=== PATIENT | male | born 1935 | race Two or more races ===

== ENCOUNTER 2018-11-04 18:47 | Inpatient (IN) | payer MEDICARE, MEDICAID ==
[~2018-11-04] VITALS: Ht 170.2 cm; Wt 74.4 kg
[2018-11-04] MEDS ORDERED: FLUT1DIS28 IH (19:02)
[2018-11-04] MEDS ORDERED: DONE10TA44 PO (19:02)
[2018-11-04] MEDS ORDERED: ALBU18HF2 IH (19:02)
[2018-11-04] MEDS ORDERED: ATOR20TA PO (19:02)
[2018-11-04] MEDS ORDERED: DOXY100C2 PO (19:02)
[2018-11-04] MEDS ORDERED: MAGN400O6 PO (19:02)
[2018-11-04] MEDS ORDERED: POLY17PO4 PO (19:02)
[2018-11-04] MEDS ORDERED: ACET-2154 PO (19:02)
[2018-11-04] MEDS ORDERED: TIMO5DRO18 EACHEYE (19:02)
[2018-11-04] MEDS ORDERED: BISA10SU61 RC (19:02)
[2018-11-04] MEDS ORDERED: CHOL20004 PO (19:02)
[2018-11-04] MEDS ORDERED: ALBU2.5V38 IH (19:02)
[2018-11-04] MEDS ORDERED: CHOL500050 PO (19:02)
[2018-11-04] MEDS ORDERED: NA P133E RC (19:02)
[2018-11-04] MEDS ORDERED: GLIM4TAB3 PO (19:02)
[2018-11-04] MEDS ORDERED: MULT1TAB73 PO (19:02)
[2018-11-04] MEDS ORDERED: LISI2.5T2 PO (19:02)
--- NOTE | 2018-11-04 19:10 | NUR ---
PATIENT WAS MSE BY CARMINA IN ROOM 04A.
[2018-11-04 19:30] LABS: BASOPHILS % (AUTO) 0.5 % (0.0-2.0); EOSINOPHILS # (AUTO) 0.2 K/uL (0.0-0.7); EOSINOPHILS % (AUTO) 2.6 % (0.0-7.0); HEMATOCRIT 42.6 % (36.7-47.1); HEMOGLOBIN 14.3 g/dL (12.5-16.3); LYMPHOCYTES # (AUTO) 1.4 K/uL (20.0-40.0); LYMPHOCYTES % (AUTO) 18.7 % (20.5-51.5); MEAN CORPUSCULAR HEMOGLOBIN 28.5 uug (23.8-33.4); MEAN CORPUSCULAR HGB CONC 34 g/dL (32.5-36.3); MEAN CORPUSCULAR VOLUME 84.7 fL (73.0-96.2); MONOCYTES # (AUTO) 0.6 K/uL (2.0-10.0); MONOCYTES % (AUTO) 8.3 % (0.0-11.0); NEUTROPHILS # (AUTO) 5.1 K/uL (1.8-8.9); NEUTROPHILS % (AUTO) 69.9 % (38.5-71.5); PLATELET COUNT (AUTO) 214 K/uL (152-348); RED BLOOD CELL COUNT(AUTO) 5.03 MIL/uL (4.06-5.63); WHITE BLOOD COUNT (AUTO) 7.4 K/uL (3.6-10.2)
[2018-11-04 19:34] LABS: CARBON DIOXIDE 27 mmol/L (21-32); CHLORIDE 103 mmol/L (98-107); CREATININE 1.6 mg/dL (0.6-1.3); GLUCOSE 78 mg/dL (74-106); POTASSIUM 4.5 mmol/L (3.5-5.1); UREA NITROGEN, BLOOD 27 mg/dL (7-18)
[2018-11-04 19:40] LABS: ACETAMINOPHEN < 2.0 ug/mL (10-30); ALANINE AMINOTRANSFERASE 20 U/L (16-63); ALKALINE PHOSPHATASE 103 U/L (50-136); ASPARTATE AMINOTRANSFERASE 20 U/L (15-37); BILIRUBIN,DIRECT 0.2 mg/dL (0.0-0.2); BILIRUBIN,TOTAL 0.7 mg/dL (0.2-1.0); ETHANOL < 3 MG/DL (0-0)
--- NOTE | 2018-11-04 19:44 | NUR ---
PATIENT MEDICALLY CLEARED. ALBINO WAS CALLED LEFT MESSAGE.
--- NOTE | 2018-11-04 21:00 | NUR ---
PATIENT WAS SEEN BY ALBNIO FROM CRISES TEAM AT BEDSIDE FOR EVAL.
--- NOTE | 2018-11-04 21:41 | NUR ---
Pt. admitted to MHU , under care of Dr. BRITTON Belongs List completed
[2018-11-04] MEDS ORDERED: ZOLPIDEM 5 MG TABLET PO PRN (22:15)
[2018-11-04] MEDS ORDERED: ACETAMINOPHEN 325 MG TABLET PO PRN (22:15)
[2018-11-04] MEDS ORDERED: MAG HYDROX/AL HYDROX/SIMETH 30 ML LIQUID UDC PO PRN (22:15)
[2018-11-04] MEDS ORDERED: MAGNESIUM HYDROXIDE 30 ML LIQUID UDC PO PRN (22:15)
--- NOTE | 2018-11-04 23:00 | NUR ---
Admission note: Received patient on a gurney from ED. Awake yelling " shut up Im trying to sleep". Attempted to oriented patient to the environment but unsuccessful. Unable to obtain information. Patient confused and disoriented. Patient put in the bed. Alarm set. Q15 min checks being done. Monitoring patient for safety at this time.
[2018-11-05 07:30] VITALS: BP 112/68
[2018-11-05] MEDS ORDERED: LORAZEPAM 2 MG/1 ML VIAL IM STA (13:05)
--- NOTE | 2018-11-05 13:15 | NUR ---
1300 Patient assisted for lunch meal, encouraging him to eat but patient became agitated, yelling " I want to "and combative trying to hit this staff . Dr. Petty in the U aware of patient uncontrolled behavior with order . 1305 Ativan 1 mg im administered. Will monitor behavior. Addendum: 11/05/18 at 1623 by [facility] TRINY GOODEN [id number] accu check 58 mg/dl -disregard error, wrong patient
[2018-11-05] MEDS ORDERED: ALBUTEROL SULFATE 2.5 MG/3 ML NEBU IH PRN (15:15)
[2018-11-05] MEDS ORDERED: DEXTROSE 50% 50 ML DISP.SYRIN IV PRN (15:15)
[2018-11-05] MEDS ORDERED: Medication Not On Formulary EA (Cholecalciferol (Vitamin D3) (Vitamin D3 CAPSULE) 50,000 PO SCH (15:15)
[2018-11-05] MEDS ORDERED: BISACODYL 10 MG SUPP.RECT RC PRN (15:15)
[2018-11-05 16:01] LABS: CARBON DIOXIDE 30 mmol/L (21-32); CHLORIDE 101 mmol/L (98-107); CREATININE 1.5 mg/dL (0.6-1.3); GLUCOSE 76 mg/dL (74-106); POTASSIUM 3.9 mmol/L (3.5-5.1); UREA NITROGEN, BLOOD 31 mg/dL (7-18)
[2018-11-05 16:23] VITALS: BP 105/57
[2018-11-05] MEDS: FLUTICASONE/VILANTEROL 1 EACH BLST.W.DEV INH SCH (16:26)
[2018-11-05] MEDS: TIMOLOL MALEATE 0.5% OPHT DROP 5 ML BOTTLE EACHEYE SCH (16:28)
[2018-11-05] MEDS: LISINOPRIL 5 MG TABLET PO SCH (16:29)
[2018-11-05] MEDS: ALBUTEROL SULFATE 2.5 MG/3 ML NEBU NEB SCH (16:55)
[2018-11-05] MEDS ORDERED: FLUTICASONE/SALMETEROL 250/50 INHALER IH SCH (17:00)
[2018-11-05] MEDS ORDERED: ALBUTEROL SULFATE 8 GM HFA.AER.AD IH SCH (17:00)
[2018-11-05] MEDS: BLOOD SUGAR DIAGNOSTIC 1 EACH STRIP VI SCH ×2 (17:08→20:38)
--- NOTE | 2018-11-05 17:30 | NUR ---
1630 BS accu check 66 mg /dl- dinner served, fed and ate 75 % og his meal.
[2018-11-05] MEDS: LORAZEPAM 1 MG TABLET PO PRN (19:37)
[2018-11-05] MEDS: QUETIAPINE FUMARATE 25 MG TABLET PO SCH (20:37)
[2018-11-05] MEDS: ATORVASTATIN 20 MG TABLET PO SCH (20:37)
[2018-11-05 20:54] VITALS: BP 105/64
--- NOTE | 2018-11-05 21:00 | NUR ---
PATIENT REFUSED SNACKS AND HE COULD ONLY HAD FEW SIPS OF JUICE. ACCU CHECKS QHS 96. PATIENT STATED, "I DON'T WANT TO EAT ANYTHING, I JUST WANT TO GO TO BED, PUT ME IN BED". PATIENT WAS THEN HELPED TO BED. WILL CONTINUE TO MONITOR.
[2018-11-06] MEDS: ALBUTEROL SULFATE 2.5 MG/3 ML NEBU NEB SCH ×4 (01:42→19:54)
[2018-11-06 07:30] VITALS: BP 108/56
[2018-11-06] MEDS: BLOOD SUGAR DIAGNOSTIC 1 EACH STRIP VI SCH ×4 (07:41→20:12)
[2018-11-06 07:51] LABS: CARBON DIOXIDE 28 mmol/L (21-32); CHLORIDE 104 mmol/L (98-107); CREATININE 1.5 mg/dL (0.6-1.3); GLUCOSE 86 mg/dL (74-106); POTASSIUM 4.1 mmol/L (3.5-5.1); UREA NITROGEN, BLOOD 28 mg/dL (7-18)
[2018-11-06] MEDS ORDERED: ESCITALOPRAM OXALATE 10 MG TABLET PO SCH (09:00)
[2018-11-06] MEDS ORDERED: Medication Not On Formulary EA (Cholecalciferol (Vitamin D3) (Vitamin D CAPSULE) 2,000 U PO SCH (09:00)
[2018-11-06] MEDS ORDERED: Medication Not On Formulary EA (Multivitamins (Multivitamin) 1 EACH) PO SCH (09:00)
[2018-11-06] MEDS: CHOLECALCIFEROL 1,000 UNIT TABLET PO SCH (09:00)
[2018-11-06] MEDS: LORAZEPAM 1 MG TABLET PO PRN ×2 (09:00→15:43)
[2018-11-06] MEDS: LISINOPRIL 5 MG TABLET PO SCH (09:00)
[2018-11-06] MEDS: DONEPEZIL 10 MG TABLET PO SCH (09:00)
[2018-11-06] MEDS: MULTIVITAMINS,THERAPEUTIC TABLET PO SCH (09:00)
[2018-11-06] MEDS: FLUTICASONE/VILANTEROL 1 EACH BLST.W.DEV INH SCH (09:01)
[2018-11-06] MEDS: TIMOLOL MALEATE 0.5% OPHT DROP 5 ML BOTTLE EACHEYE SCH ×2 (09:03→16:31)
[2018-11-06] MEDS: INSULIN REGULAR, HUMAN 300 UNIT/3 ML VIAL SQ PRN ×2 (11:42→16:51)
[2018-11-06] MEDS ORDERED: IV D5 1/2 NS 1000 ML 1,000 ML IV ONE (11:45)
[2018-11-06 16:00] VITALS: BP 95/53
[2018-11-06 19:52] VITALS: BP 109/58
--- NOTE | 2018-11-06 20:00 | NUR ---
RECEIVED PATIENT IN THE HALLWAY SITTING IN A PAUL CHAIR. HE IS NOTED A/O X 2. DEPRESSED MOOD FLAT AFFECT FLIGHT OF IDEAS, NEEDY. PATIENT IS RECEIVING IV FLUIDS DSW 45% NS. AT 100ML/HR. THERE IS APPROX 300ML LEFT IN BAG. PATIENT IS IN NO DISTRESS. V/S STABLE AT THIS TIME. ACCU CHECK 161. PATIENT IS REASSURED FOR HIS SAFETY. WILL CONTINUE TO MONITOR.
[2018-11-06] MEDS: QUETIAPINE FUMARATE 25 MG TABLET PO SCH (20:09)
[2018-11-06] MEDS: ATORVASTATIN 20 MG TABLET PO SCH (20:09)
--- NOTE | 2018-11-06 22:00 | NUR ---
REGULAR INSULIN SQ QHS PRN WAS HELD D/T PATIENT POOR INTAKE AND H/O HYPOGLYCEMIA. WILL CONTINUE TO MONITOR.
[2018-11-07] MEDS: ALBUTEROL SULFATE 2.5 MG/3 ML NEBU NEB SCH ×4 (01:28→18:58)
[2018-11-07] MEDS: LORAZEPAM 1 MG TABLET PO PRN ×3 (02:00→16:13)
--- NOTE | 2018-11-07 06:53 | NUR ---
PATIENT SLEPT FOR APPROX 5.00 HRS THROUGH THE NIGHT. HE IS NOTED LESS IRRITABLE, LESS NEEDY. COMPLIANT WITH MEDICATION REGIMENT. ACCU CHECK 98 THIS AM. WILL CONTINUE TO MONITOR.
[2018-11-07] MEDS: BLOOD SUGAR DIAGNOSTIC 1 EACH STRIP VI SCH ×4 (07:21→21:20)
[2018-11-07 07:30] VITALS: BP 109/61
[2018-11-07 08:10] LABS: CARBON DIOXIDE 28 mmol/L (21-32); CHLORIDE 103 mmol/L (98-107); CREATININE 1.4 mg/dL (0.6-1.3); GLUCOSE 118 mg/dL (74-106); UREA NITROGEN, BLOOD 24 mg/dL (7-18)
[2018-11-07] MEDS: MULTIVITAMINS,THERAPEUTIC TABLET PO SCH (08:25)
[2018-11-07] MEDS: TIMOLOL MALEATE 0.5% OPHT DROP 5 ML BOTTLE EACHEYE SCH ×2 (08:25→16:13)
[2018-11-07] MEDS: CHOLECALCIFEROL 1,000 UNIT TABLET PO SCH (08:25)
[2018-11-07] MEDS: DONEPEZIL 10 MG TABLET PO SCH (08:25)
[2018-11-07] MEDS: LISINOPRIL 5 MG TABLET PO SCH (08:26)
[2018-11-07] MEDS: FLUTICASONE/VILANTEROL 1 EACH BLST.W.DEV INH SCH (08:26)
[2018-11-07] MEDS: VENLAFAXINE XR 37.5 MG CAP.SR.24H PO SCH (10:07)
--- NOTE | 2018-11-07 13:24 | NUR ---
Initial Discharge Planning: Patient is an 83 year old male who currently lives at [facility] [[address], [place] [address]; ]. Per [facility] AYAN Portillo, patient is able to return to facility when he is ready for discharge regardless of the 7-day bed hold. Specialty Cook will continue to meet with patient and collaborate with patient, family, and MD on a safe and proper discharge.
[2018-11-07] MEDS ORDERED: IV D5 1/2 NS 1000 ML 1,000 ML IV ONE (14:45)
[2018-11-07 15:51] VITALS: BP 101/50
[2018-11-07] MEDS: INSULIN REGULAR, HUMAN 300 UNIT/3 ML VIAL SQ PRN ×2 (16:09→21:22)
--- NOTE | 2018-11-07 19:20 | NUR ---
RECEIVED PT ON SITTING ON PAUL-CHAIR. PT IV DWELLING WELL. PT SHOWS NO SIGNS OF ACUTE DISTRESS. SAFETY AND COMFORT PROVIDED. WILL CONTINUE TO MONITOR.
[2018-11-07 20:15] VITALS: BP 121/58
[2018-11-07] MEDS: QUETIAPINE FUMARATE 25 MG TABLET PO SCH (20:57)
[2018-11-07] MEDS: ATORVASTATIN 20 MG TABLET PO SCH (20:57)
[2018-11-08] MEDS: ALBUTEROL SULFATE 2.5 MG/3 ML NEBU NEB SCH ×4 (00:36→19:08)
[2018-11-08] MEDS: LORAZEPAM 1 MG TABLET PO PRN (00:42)
--- NOTE | 2018-11-08 06:53 | NUR ---
PT GIVEN ATIVAN. TRYING TO GET OUT OF THE BED. PULLING HIS IV. CHARGE NURSE AWARE. SAFETY AND COMFORT PROVIDED. WILL CONTINUE TO MONITOR.
--- NOTE | 2018-11-08 06:55 | NUR ---
PT SLEPT 9HOURS. PT SHOWS NO SIGNS OF ACUTE DISTRESS. SAFETY AND COMFORT PROVIDED. WILL ENDORSE ACCORDINGLY TO INCOMING NURSE FOR CONTINUITY OF CARE.
[2018-11-08] MEDS: BLOOD SUGAR DIAGNOSTIC 1 EACH STRIP VI SCH ×4 (07:20→20:27)
--- NOTE | 2018-11-08 07:30 | NUR ---
Insulin non-administered pt. not eating breakfast sleeping.
[2018-11-08 08:03] LABS: CARBON DIOXIDE 26 mmol/L (21-32); CHLORIDE 105 mmol/L (98-107); CREATININE 1.3 mg/dL (0.6-1.3); GLUCOSE 109 mg/dL (74-106); POTASSIUM 4.1 mmol/L (3.5-5.1); UREA NITROGEN, BLOOD 21 mg/dL (7-18)
[2018-11-08] MEDS ORDERED: HYDROXYZINE PAMOATE 25 MG CAPSULE PO PRN (08:45)
[2018-11-08] MEDS: VENLAFAXINE XR 37.5 MG CAP.SR.24H PO SCH (09:00)
[2018-11-08] MEDS: DONEPEZIL 10 MG TABLET PO SCH (09:39)
[2018-11-08] MEDS: CHOLECALCIFEROL 1,000 UNIT TABLET PO SCH (09:39)
[2018-11-08] MEDS: FLUTICASONE/VILANTEROL 1 EACH BLST.W.DEV INH SCH (09:40)
[2018-11-08] MEDS: LISINOPRIL 5 MG TABLET PO SCH (09:40)
[2018-11-08] MEDS: MULTIVITAMINS,THERAPEUTIC TABLET PO SCH (09:40)
--- NOTE | 2018-11-08 09:41 | NUR ---
VENLAZAFINE EFFEXOR NON-ADMINISTERED PT. LETHARGIC AND BEEN SLEEPING FOR THE LAST 9 HOURS REPORTED.
[2018-11-08] MEDS: TIMOLOL MALEATE 0.5% OPHT DROP 5 ML BOTTLE EACHEYE SCH ×2 (09:42→17:11)
--- NOTE | 2018-11-08 10:43 | NUR ---
Patient care will be endorse to JOSE Nelson who will continue with care plan including pending collections of urine as ordered.
[2018-11-08 15:49] VITALS: BP 187/91
[2018-11-08 20:05] VITALS: BP 117/65
[2018-11-08] MEDS: QUETIAPINE FUMARATE 25 MG TABLET PO SCH (20:27)
[2018-11-08] MEDS: ATORVASTATIN 20 MG TABLET PO SCH (20:27)
--- NOTE | 2018-11-08 21:07 | NUR ---
GPS: Rec'd pt in bed awake, no s/s of acute distress noted. Does not appear to be responding to any internal stimuli. Per report refused to eat during the day. Offered food however pt refused to answer. Appears comfortable. No s/s of hypo/hyperglycemia noted. Took all due HS meds as ordered. No episode of sexually inappropriate behavior at this time. Continues to refuse to answer why he does not want to eat. All safety precautions in place. Will cont to monitor.
[2018-11-09] MEDS: ALBUTEROL SULFATE 2.5 MG/3 ML NEBU NEB SCH ×4 (00:35→20:31)
[2018-11-09] MEDS: BLOOD SUGAR DIAGNOSTIC 1 EACH STRIP VI SCH ×4 (06:38→20:33)
[2018-11-09 07:30] VITALS: BP 123/65
[2018-11-09] MEDS: TIMOLOL MALEATE 0.5% OPHT DROP 5 ML BOTTLE EACHEYE SCH ×2 (08:46→16:32)
[2018-11-09] MEDS: DONEPEZIL 10 MG TABLET PO SCH (08:47)
[2018-11-09] MEDS: CHOLECALCIFEROL 1,000 UNIT TABLET PO SCH (08:47)
[2018-11-09] MEDS: VENLAFAXINE XR 37.5 MG CAP.SR.24H PO SCH (08:47)
[2018-11-09] MEDS: MULTIVITAMINS,THERAPEUTIC TABLET PO SCH (08:47)
[2018-11-09] MEDS: FLUTICASONE/VILANTEROL 1 EACH BLST.W.DEV INH SCH (08:47)
[2018-11-09] MEDS: LISINOPRIL 5 MG TABLET PO SCH (08:50)
[2018-11-09 16:00] VITALS: BP 97/52
--- NOTE | 2018-11-09 18:08 | NUR ---
GPS:RECEIVED PATIENT AOX3, PATIENT ON BED, DENIES PAIN DENIES SI AND HI, ON BREATHING TREATMENT WITH RT, PATIENT HAS A IV ACCESS ON HIS RIGHT FOREARM, COMPLIANT WITH MEDICATION PATIENT CALM AND COOPERATIVE, NO SOB NOTED, REMOVED IV ACCESS , WILL CONTINUE MONITOR
[2018-11-09] MEDS: ATORVASTATIN 20 MG TABLET PO SCH (20:24)
[2018-11-09] MEDS: QUETIAPINE FUMARATE 25 MG TABLET PO SCH (20:25)
[2018-11-09 20:34] VITALS: BP 101/61
[2018-11-10] MEDS: ALBUTEROL SULFATE 2.5 MG/3 ML NEBU NEB SCH ×4 (01:33→19:59)
[2018-11-10] MEDS: BLOOD SUGAR DIAGNOSTIC 1 EACH STRIP VI SCH ×4 (06:40→21:00)
[2018-11-10 07:30] VITALS: BP 116/57
[2018-11-10] MEDS: LISINOPRIL 5 MG TABLET PO SCH (09:00)
[2018-11-10] MEDS: TIMOLOL MALEATE 0.5% OPHT DROP 5 ML BOTTLE EACHEYE SCH ×2 (09:22→16:35)
[2018-11-10] MEDS: CHOLECALCIFEROL 1,000 UNIT TABLET PO SCH (09:22)
[2018-11-10] MEDS: FLUTICASONE/VILANTEROL 1 EACH BLST.W.DEV INH SCH (09:22)
[2018-11-10] MEDS: MULTIVITAMINS,THERAPEUTIC TABLET PO SCH (09:23)
[2018-11-10] MEDS: VENLAFAXINE XR 37.5 MG CAP.SR.24H PO SCH (09:23)
[2018-11-10] MEDS: DONEPEZIL 10 MG TABLET PO SCH (09:23)
[2018-11-10] MEDS: INSULIN REGULAR, HUMAN 300 UNIT/3 ML VIAL SQ PRN (11:36)
[2018-11-10 16:00] VITALS: BP 99/57
--- NOTE | 2018-11-10 18:21 | NUR ---
GPS : RECEIVED PATIENT ON BED, ALERT ORIENTED X3, PATIENT COMPLIANT WITH MEDICATION, WITH BREATHING TREATMENT WITH RT, PATIENT NO SOB NO DISTRESS NOTED, PATIENT POOR INTAKE, COMPLIANT WITH MEDICATION, DENIES AND SI AND HI, KEPT COMFORTABLE AT ALL TIME , AMBULATES WITH ASSIST , WILL CONTINUE MONITOR
[2018-11-10 20:13] VITALS: BP 111/62
[2018-11-10] MEDS: QUETIAPINE FUMARATE 25 MG TABLET PO SCH (20:59)
[2018-11-10] MEDS: ATORVASTATIN 20 MG TABLET PO SCH (20:59)
[2018-11-11] MEDS: ALBUTEROL SULFATE 2.5 MG/3 ML NEBU NEB SCH ×4 (00:59→19:40)
--- NOTE | 2018-11-11 00:59 | NUR ---
RT PT ASLEEP AT THIS TIME. SPO2 97% NO SOB NOTED. BS CLEAR. WILL CONT TO MONITOR PT
[2018-11-11] MEDS: BLOOD SUGAR DIAGNOSTIC 1 EACH STRIP VI SCH ×4 (06:16→20:07)
[2018-11-11 06:41] LABS: CARBON DIOXIDE 27 mmol/L (21-32); CHLORIDE 102 mmol/L (98-107); CREATININE 1.5 mg/dL (0.6-1.3); GLUCOSE 90 mg/dL (74-106); POTASSIUM 4.1 mmol/L (3.5-5.1); UREA NITROGEN, BLOOD 25 mg/dL (7-18)
[2018-11-11 06:42] LABS: BASOPHILS % (AUTO) 0.6 % (0.0-2.0); EOSINOPHILS # (AUTO) 0.2 K/uL (0.0-0.7); EOSINOPHILS % (AUTO) 3.5 % (0.0-7.0); HEMOGLOBIN 13.2 g/dL (12.5-16.3); LYMPHOCYTES # (AUTO) 1.2 K/uL (20.0-40.0); LYMPHOCYTES % (AUTO) 20.2 % (20.5-51.5); MEAN CORPUSCULAR HEMOGLOBIN 28.5 uug (23.8-33.4); MEAN CORPUSCULAR HGB CONC 34 g/dL (32.5-36.3); MEAN CORPUSCULAR VOLUME 84.5 fL (73.0-96.2); MONOCYTES # (AUTO) 0.5 K/uL (2.0-10.0); MONOCYTES % (AUTO) 8.3 % (0.0-11.0); NEUTROPHILS % (AUTO) 67.4 % (38.5-71.5); PLATELET COUNT (AUTO) 185 K/uL (152-348); RED BLOOD CELL COUNT(AUTO) 4.62 MIL/uL (4.06-5.63); WHITE BLOOD COUNT (AUTO) 5.9 K/uL (3.6-10.2)
[2018-11-11 07:30] VITALS: BP 111/51
[2018-11-11] MEDS: TIMOLOL MALEATE 0.5% OPHT DROP 5 ML BOTTLE EACHEYE SCH ×2 (08:44→16:28)
[2018-11-11] MEDS: FLUTICASONE/VILANTEROL 1 EACH BLST.W.DEV INH SCH (08:44)
[2018-11-11] MEDS: CHOLECALCIFEROL 1,000 UNIT TABLET PO SCH (08:44)
[2018-11-11] MEDS: DONEPEZIL 10 MG TABLET PO SCH (08:45)
[2018-11-11] MEDS: VENLAFAXINE XR 37.5 MG CAP.SR.24H PO SCH (08:45)
[2018-11-11] MEDS: MULTIVITAMINS,THERAPEUTIC TABLET PO SCH (08:45)
[2018-11-11] MEDS: LISINOPRIL 5 MG TABLET PO SCH (08:45)
[2018-11-11] MEDS ORDERED: ERGOCALCIFEROL 50,000 UNIT CAPSULE PO SCH (09:00)
--- NOTE | 2018-11-11 13:11 | NUR ---
FIREARMS REPORT: milk processing worker completed and submitted a [employer] firearms report for a 5250 GD certification.
[2018-11-11 16:00] VITALS: BP 118/58
--- NOTE | 2018-11-11 16:29 | NUR ---
WEDNESDAY DC NOTE: Patient will be discharged back to [facility] [[facility], [id number]; ]. Facility will be providing transportation and is scheduled for 11:00am. Spoke with Alice who states facility is ready to accept patient back on 11/12/18. Patient is aware and agreeable with discharge plans. Spoke with patients daughter, Jacquelyn [ ] who is also aware and agreeable with discharge plans. Patient will follow-up at the facility with Dr. Martines (Station Inspector) and Dr. Blancas (Psychiatrist). [employer] Reconnaissance Vehicle Crewman faxed a continuing care packet to facility on 11/11/18. Patient was given outpatient mental health referrals to [facility] [[address] [place] [address]; [phone]]; [facility] Crisis Line ([phone]); National Suicide Prevention Lifeline ( ).
[2018-11-11] MEDS: ATORVASTATIN 20 MG TABLET PO SCH (20:06)
[2018-11-11] MEDS: QUETIAPINE FUMARATE 25 MG TABLET PO SCH (20:07)
[2018-11-11 21:01] VITALS: BP 118/68
--- NOTE | 2018-11-11 22:00 | NUR ---
ACCU CHECKS QHS IS 141; HOWEVER, REGULAR INSULIN WAS HELD D/T PATIENT POOR INTAKE AND REFUSED SNACKS HS. HE IS ABLE TO COMPLY WITH MEDICATION REGIMENT DIET AND PLAN OF CARE. WILL CONTINUE TO MONITOR.
[2018-11-12] MEDS: ALBUTEROL SULFATE 2.5 MG/3 ML NEBU NEB SCH ×2 (01:29→08:47)
[2018-11-12] MEDS: BLOOD SUGAR DIAGNOSTIC 1 EACH STRIP VI SCH (06:49)
[2018-11-12 07:30] VITALS: BP 115/52
[2018-11-12] MEDS: MULTIVITAMINS,THERAPEUTIC TABLET PO SCH (08:04)
[2018-11-12] MEDS: VENLAFAXINE XR 37.5 MG CAP.SR.24H PO SCH (08:05)
[2018-11-12] MEDS: DONEPEZIL 10 MG TABLET PO SCH (08:05)
[2018-11-12] MEDS: TIMOLOL MALEATE 0.5% OPHT DROP 5 ML BOTTLE EACHEYE SCH (08:05)
[2018-11-12] MEDS: CHOLECALCIFEROL 1,000 UNIT TABLET PO SCH (08:05)
[2018-11-12 08:06] VITALS: BP 115/52
[2018-11-12] MEDS: LISINOPRIL 5 MG TABLET PO SCH (08:06)
[2018-11-12] MEDS: FLUTICASONE/VILANTEROL 1 EACH BLST.W.DEV INH SCH (08:07)
--- NOTE | 2018-11-12 12:05 | NUR ---
PT LEFT UNIT ON W/C ACCOMPANIED BY FENCE ERECTOR SUPERVISOR, SORIN. PT LEFT WITHOUT INCIDENT. CALM AND COOPERATIVE. NO AGGRESSIVE OR COMBATIVE BEHAVIOR NOTED. LEFT WITH ALL NOTED BELONGINGS AND PAPERWORK. W/S STABLE DENIES PAIN OR DISCOMFORT. IN NO ACUTE DISTRESS.
== END 2018-11-12 12:05 | DRG 885 ==
LOC: ER 18:48 → GPS 21:44
PROVIDERS: ADMIT Psychiatry & Neurology Psychiatry; ATTEND Nurse Practitioner Acute Care
DX: F29 Unspecified psychosis not due to a substance or known physiological condition (principal); N17.0 Acute kidney failure with tubular necrosis; F03.91 Unspecified dementia, unspecified severity, with behavioral disturbance; J44.9 Chronic obstructive pulmonary disease, unspecified; H40.9 Unspecified glaucoma; E78.5 Hyperlipidemia, unspecified; E11.649 Type 2 diabetes mellitus with hypoglycemia without coma; I10 Essential (primary) hypertension; F32.9 Major depressive disorder, single episode, unspecified; Z79.4 Long term (current) use of insulin
CPT/HCPCS: 36415; 71045; 85025; 92526; 92610; 93005; 94640; 97110; 97116; 97530; A4663; G0480; G0480-TC; J1815; J2060; J3490